=== PATIENT | male | born 1990 | race Caucasian/White ===

== ENCOUNTER 2016-11-24 08:07 | Emergency (ER) | payer BC, OTHER ==
[~2016-11-24] VITALS: Ht 172.7 cm; Wt 98.4 kg
--- OUTSIDE RECORDS SUMMARY | 2016-11-24 08:14 | XMS REPORT ---
Author Author CHARITY GREEN [facility] eClinicalWorks Address Unknown Phone Unavailable Care Team Providers Care Arts Administrator Or Manager Name Role Phone CHARITY GREEN CP Unavailable Allergies No Known Allergies Problems Problem Type Condition Code Onset Dates Condition Status Problem Dyshydrosis L30.1 Active Problem Prickly heat L74.0 Active Medications No Known Medications Results No Known Results Summary Purpose eClinicalWorks Submission
[2016-11-24] MEDS ORDERED: fentaNYL INJECTION 100 MCG/2 ML AMP IVP STA (08:30)
[2016-11-24] MEDS ORDERED: NS IV 1000 ML 1,000 ML IV ONE (08:30)
[2016-11-24 08:36] LABS: BASOPHILS % (AUTO) 0 % (0-10); EOSINOPHILS # (AUTO) 0.2 10^3/uL (0.0-0.3); EOSINOPHILS % (AUTO) 3 % (0-10); LYMPHOCYTES # (AUTO) 3.1 X 10^3 (1.0-4.0); LYMPHOCYTES % (AUTO) 38 % (12-44); MEAN CORPUSCULAR HEMOGLOBIN 30 PG (25-34); MEAN CORPUSCULAR HGB CONC 35 G/DL (32-36); MEAN CORPUSCULAR VOLUME 87 FL (80-99); MEAN PLATELET VOLUME 11.2 FL (7.4-10.4); MONOCYTES % (AUTO) 12 % (0-12); NEUTROPHILS % (AUTO) 48 % (42-75); PLATELET COUNT 215 10^3/uL (130-400); RED CELL DISTRIBUTION WIDTH 13.2 % (10.0-14.5); WHITE BLOOD COUNT 8.4 10^3/uL (4.3-11.0)
[2016-11-24] MEDS ORDERED: IBUP-1773 PO (08:39)
[2016-11-24] MEDS ORDERED: [UNRECOGNIZED DRUG - OTHER] (08:39)
[2016-11-24] MEDS ORDERED: METO10TA3 PO (08:39)
[2016-11-24] MEDS ORDERED: DICY20TA10 PO (08:39)
[2016-11-24] MEDS ORDERED: HYDR-700 PO (08:39)
[2016-11-24] MEDS ORDERED: ASPI-809 PO (08:40)
[2016-11-24] MEDS ORDERED: HYDR-3812 PO (08:40)
[2016-11-24 08:58] LABS: ALANINE AMINOTRANSFERASE 37 U/L (0-55); ALBUMIN 4.8 G/DL (3.2-4.5); AMYLASE 54 U/L (25-125); ANION GAP 11 MMOL/L (5-14); ASPARTATE AMINO TRANSFERASE 20 U/L (5-34); BILIRUBIN,TOTAL 0.4 MG/DL (0.1-1.0); BLOOD UREA NITROGEN 11 MG/DL (7-18); BUN/CREATININE RATIO 10; CALCIUM 9.1 MG/DL (8.5-10.1); CARBON DIOXIDE 22 MMOL/L (21-32); CHLORIDE 109 MMOL/L (98-107); CREATININE SERUM 1.13 MG/DL (0.60-1.30); GFR ESTIMATED > 60; GLUCOSE 97 MG/DL (70-105); LIPASE 14 U/L (8-78); POTASSIUM 3.7 MMOL/L (3.6-5.0); SODIUM 142 MMOL/L (135-145); TOTAL PROTEIN 7.6 G/DL (6.4-8.2)
--- NOTE | 2016-11-24 08:59 | ED Abdominal Pain ---
General Chief Complaint: Abdominal/GI Problems Stated Complaint: ABD PAIN Nursing Triage Note: PT STATES ISABELA HAS DONE SOME TESTS AND HIS GALBLADDER NEEDS TO COME OUT, CC TODAY OF RT ABD PAIN THAT STARTED ABOUT 0500 THIS A.M. Sepsis Screen: No Definite Risk Source of Information: Patient Exam Limitations: No Limitations History of Present Illness Time Seen By Provider: 08:22 Initial Comments Here with complaint of right upper quadrant abdominal pain that started at 5 a.m. this morning. It is associated with nausea but no vomiting. Does have history of gallbladder problems and was told that he needed to get his gallbladder out. He states that he was waiting for insurance which has now. He tried a hydrocodone and ibuprofen 600 mg by mouth this morning and that did not help the pain. Last ate about 1230 a.m. He did drink some fluid when taking his meds earlier. Timing/Duration: 4-6 Hours Severity/Quality: Moderate, Severe Location: RUQ Radiation: No Radiation Activities at Onset: None Modifying Factors: Worsens With Eating, Worsens With Movement Associated Symptoms: No Back Pain, No Chest Pain, No Fever/Chills, Nausea/ Vomiting Allergies and Home Medications Allergies Coded Allergies: Sulfa (Sulfonamide Antibiotics) (Verified Allergy, Intermediate, 11/24/16) Home Medications (Reported) Aspirin/Acetaminophen/Caffeine 1 Each Tablet 1 EACH PO PRN (Reported) Dicyclomine HCl 20 Mg Tablet 20 MG PO DAILY (Reported) Hydrocodone/Acetaminophen 1 Each Tablet 1 EACH PO Q4H PRN PRN PAIN (Reported) Hydroxyzine HCl 25 Mg Tablet 25 MG PO DAILY (Reported) Ibuprofen 600 Mg Tablet 600 MG PO Q6H (Reported) Metoclopramide HCl 10 Mg Tablet 10 MG PO BID (Reported) Review of Systems Constitutional: see HPINo chills, No fever EENTM: No Symptoms Reported Respiratory: No Symptoms Reported Cardiovascular: No Symptoms Reported Gastrointestinal: See HPI Abdominal PainDenies Diarrhea, NauseaDenies Vomiting Genitourinary: No Symptoms Reported Musculoskeletal: no symptoms reported Skin: no symptoms reported All Other Systems Reviewed Negative Unless Noted: Yes Past Enyfqbc-Ekxmbz-Cgyjpn Hx Patient Social History Alcohol Use: Denies Use Recreational Drug Use: No Smoking Status: Never a Smoker Recent Foreign Travel: No Contact w/Someone Who Travel: No Recent Infectious Disease Expo: No Recent Hopitalizations: No Physical Abuse Screen: No Sexual Abuse: No Seasonal Allergies Seasonal Allergies: Yes Surgeries HX Surgeries: Yes (WEBBED HANDS AT -SURGERY, HYDROCELE HERNIA SURGERY) Surgeries: Abdominal, Adenoidectomy, Tonsillectomy Respiratory Hx Respiratory Disorders: Yes Respiratory Disorders: Asthma Cardiovascular Hx Cardiac Disorders: Yes (AORTIC STENOSIS, MITRAL VALVE PROLAPSE) Cardiac Disorders: Valvular Heart Disease Neurological Hx Neurological Disorders: No Genitourinary Hx Genitourinary Disorders: No Gastrointestinal Hx Gastrointestinal Disorders: No Musculoskeletal Hx Musculoskeletal Disorders: No Endocrine Hx Endocrine Disorders: No Cancer Hx Cancer: No Psychosocial Hx Psychiatric Problems: No Integumentary HX Skin/Integumentary Disorder: No Skin/Integumentary Disorders: Psoriasis Blood Transfusions Hx Blood Disorders: No Reviewed Nursing Assessment Reviewed/Agree w Nursing PMH: Yes Family Medical History Significant Family History: No Pertinent Family Hx Physical Exam Vital Signs VS - Last 72 Hours, by Label 11/24/16 08:26 Temp 97.8 Pulse 73 Resp 22 B/P 135/81 Pulse Ox 98 O2 Delivery Room Air Capillary Refill : Less Than 3 Seconds General Appearance: WD/WN no apparent distress HEENT: PERRL/EOMI pharynx normal Neck: full range of motion supple Respiratory: lungs clear normal breath sounds Cardiovascular: regular rate, rhythm no murmur Gastrointestinal: soft tenderness (right upper quadrant) Extremities: non-tender normal inspection Back: normal inspection no CVA tenderness no vertebral tenderness Neurologic/Psychiatric: alert oriented x 3 Skin: normal color warm/dry Progress/Results/Core Measures Results/Orders Lab Results Laboratory Tests Test 11/24/16 08:25 Range/Units Alanine Aminotransferase (ALT/SGPT) 37 0-55 U/L Albumin 4.8 H 3.2-4.5 G/DL Alkaline Phosphatase 82 40-136 U/L Amylase Level 54 25-125 U/L Anion Gap 11 5-14 MMOL/L Aspartate Amino Transf (AST/SGOT) 20 5-34 U/L BUN/Creatinine Ratio 10 Basophils # (Auto) 0.0 0.0-0.1 10^3/uL Basophils (%) (Auto) 0 0-10 % Blood Urea Nitrogen 11 7-18 MG/DL Calcium Level 9.1 8.5-10.1 MG/DL Carbon Dioxide Level 22 21-32 MMOL/L Chloride Level 109 H 98-107 MMOL/L Creatinine 1.13 0.60-1.30 MG/DL Eosinophils # (Auto) 0.2 0.0-0.3 10^3/uL Eosinophils (%) (Auto) 3 0-10 % Estimat Glomerular Filtration Rate > 60 Glucose Level 97 70-105 MG/DL Hematocrit 45 40-54 % Hemoglobin 15.8 13.3-17.7 G/DL Lipase 14 8-78 U/L Lymphocytes # (Auto) 3.1 1.0-4.0 X 10^3 Lymphocytes (%) (Auto) 38 12-44 % Mean Corpuscular Hemoglobin 30 25-34 PG Mean Corpuscular Hemoglobin Concent 35 32-36 G/DL Mean Corpuscular Volume 87 80-99 FL Mean Platelet Volume 11.2 H 7.4-10.4 FL Monocytes # (Auto) 1.0 0.0-1.0 X 10^3 Monocytes (%) (Auto) 12 0-12 % Neutrophils # (Auto) 4.0 1.8-7.8 X 10^3 Neutrophils (%) (Auto) 48 42-75 % Platelet Count 215 130-400 10^3/uL Potassium Level 3.7 3.6-5.0 MMOL/L Red Blood Count 5.20 4.35-5.85 10^6/uL Red Cell Distribution Width 13.2 10.0-14.5 % Sodium Level 142 135-145 MMOL/L Total Bilirubin 0.4 0.1-1.0 MG/DL Total Protein 7.6 6.4-8.2 G/DL White Blood Count 8.4 4.3-11.0 10^3/uL My Orders Orders-GERARD SHI MD Amylase (11/24/16 08:30) Cbc With Automated Diff (11/24/16 08:30) Comprehensive Metabolic Panel (11/24/16 08:30) Lipase (11/24/16 08:30) Saline Lock/Iv-Start (11/24/16 08:30) Ns Iv 1000 Ml (Sodium Chloride 0.9%) (11/24/16 08:30) Fentanyl Injection (Sublimaze Injection (11/24/16 08:30) Us Gallbladder [id number] (11/24/16 08:30) Medications Given in ED Current Medications Medications Dose Ordered Sig/Tabatha Route Start Time Stop Time Status Last Admin Dose Admin Sodium Chloride 1,000 ml @ 0 mls/hr Q0M ONCE IV 1/3/17 08:30 11/24/16 08:32 DC 11/24/16 08:48 1,000 MLS/HR Vital Signs/I&O Vital Sign - Last 12Hours 11/24/16 08:26 Temp 97.8 Pulse 73 Resp 22 B/P 135/81 Pulse Ox 98 O2 Delivery Room Air Blood Pressure Mean: 99 Progress Note : Progress Note Seen and evaluated. IV, labs, normal saline 1 L bolus and ultrasound right upper quadrant ordered. Fentanyl 50 g IV ordered. Patient refuses fentanyl due to an with history of problems. Monitor patient. 1050: Pain improved. I did discuss the case with Dr. Garnica at 1040. He would like to see the patient in the office tomorrow and will set him up for further evaluation including surgery as indicated. This was discussed with the patient who agrees. Discharged home with return precautions. Patient verbalize understanding instructions and agreement with plan. Diagnostic Imaging Diagonstic Imaging: Ultrasound Plain Films/CT/US/NM/MRI: abdomen Comments VIA [facility]. [place], [place] NAME: BEBETO LAWLER [facility] REC#: [id number] PT STATUS: REG ER : 1990 PHYSICIAN: GERARD SHI MD ADMIT DATE: 11/24/16/ER Draft Date of Exam:11/24/16 US GALLBLADDER [id number] PROCEDURE: US Gallbladder. TECHNIQUE: Multiple real-time grayscale images were obtained over the right upper quadrant in various projections. INDICATION: Right upper quadrant pain. FINDINGS: The pancreas is obscured. The liver is fairly homogeneous with no focal lesion. There is hepatopetal flow in the portal vein. The gallbladder demonstrates no stones or wall thickening. There is, however, gallbladder sludge. The CBD is obscured. The right kidney is 10.8 cm with no focal lesion. There is no fluid collection in the upper right abdomen. Sonographic Herrera sign is reportedly negative. IMPRESSION: Gallbladder sludge. No stones or evidence of cholecystitis. Dictated on workstation # [id number] Dict: 11/24/16 0930 Trans: 11/24/16 0943 SUSY [id number] Interpreted by: POLA DANG MD Electronically signed by: Departure Impression Impression: Primary Impression: Right upper quadrant abdominal pain Additional Impression: Gallbladder sludge Disposition: 01 HOME, SELF-CARE Condition: Improved Departure-Patient Inst. Decision time for Depature: 10:50 Referrals: CRISTOFER GARNICA DAVID F MD (PCP/Family) Primary Care Physician Patient Instructions: POSS GALLSTONE-W/BILIARY COLIC Add. Discharge Instructions: All discharge instructions reviewed with patient and/or family. Voiced understanding. Clear liquid diet for 24 hours and then advance as tolerated. Call Dr. Garnica' s office today for appointment time for tomorrow per his instructions. Return for worse pain, fever, vomiting, weakness, breathing problems or other concerns as needed. Take medications as previously prescribed. You may take Pepcid for the generic famotidine 20 mg twice daily for the next several days and then as needed. Work/School Note: Work Release Form Date Seen in the Emergency Department: Nov 24, 2016 Return to Work: Nov 25, 2016 Restrictions: No Restrictions GERARD SHI MD Nov 24, 2016 08:59
--- NOTE | 2016-11-24 09:43 | Diagnostic Imaging Report ---
PROCEDURE: US Gallbladder. TECHNIQUE: Multiple real-time grayscale images were obtained over the right upper quadrant in various projections. INDICATION: Right upper quadrant pain. FINDINGS: The pancreas is obscured. The liver is fairly homogeneous with no focal lesion. There is hepatopetal flow in the portal vein. The gallbladder demonstrates no stones or wall thickening. There is, however, gallbladder sludge. The CBD is obscured. The right kidney is 10.8 cm with no focal lesion. There is no fluid collection in the upper right abdomen. Sonographic Herrera sign is reportedly negative. IMPRESSION: Gallbladder sludge. No stones or evidence of cholecystitis. Dictated by: Dictated on workstation # [id number]
[2016-11-24 11:04] VITALS: BP 116/70
== END 2016-11-24 11:04 | disposition home or self-care (01) ==
LOC: ER 08:10
DX: K82.8 Other specified diseases of gallbladder (principal); I34.1 Nonrheumatic mitral (valve) prolapse; Z79.82 Long term (current) use of aspirin; Z79.899 Other long term (current) drug therapy
CPT/HCPCS: 36415; 76705; 80053; 82150; 83690; 85025; 96361; 96374

== ENCOUNTER → 2016-12-01 | Outpatient (CLI) | payer BC ==
[~2016-12-01] MED LIST: ASPI-809 PO; CATHETER FLUSH 10 ML SYR IV PRN; DICY20TA10 PO; DOCU-143 PO; GALLBLADDER FORMULA PO; HYDR-3812 PO; HYDR-700 PO; IBUP-1773 PO; L.AC1CAP6 PO; MAGN200T PO; METO-310 PO; METO10TA3 PO; MILK500C PO; OMG1KC PO; ONDA4TAB8 PO; OX BILE PO; TURM500C7 PO; [UNRECOGNIZED DRUG - OTHER]; [UNRECOGNIZED DRUG - OTHER] PO; [UNRECOGNIZED DRUG - OTHER] PO; morphine INJ 10 MG/ML 1ML (SYR OR VIAL) ONE; morphine INJ 4 MG/ML 1 ML (VIAL/SYRINGE) IVP PRN
--- NOTE | 2016-12-01 14:20 | Diagnostic Imaging Report ---
EXAMINATION: HIDA without EF measurements INDICATION: Abdominal pain TECHNIQUE: After the intravenous administration of 5.3 mCi of Tc 99m Choletec, imaging over the abdomen was obtained. This was followed by administration of Morphine at 75 minutes. FINDINGS: There is homogeneous uptake in the liver with prompt bile duct and gallbladder filling seen. Bowel activity is seen at 15 minutes. The gallbladder demonstrates mild filling at 115 minutes, at 40 minutes after administration of morphine and appears small, perhaps related to contracted appearance or perhaps is filled with sludge as demonstrated on recent ultrasound. IMPRESSION: There is delayed filling of the gallbladder. This precludes the possibility of acute cholecystitis. The delayed mild filling of the gallbladder could relate, however, to biliary dyskinesia. Correlate clinically. Dictated by: Dictated on workstation # [id number]
== END ==
LOC: CARD 10:51
PROVIDERS: ATTEND Surgery
DX: K82.8 Other specified diseases of gallbladder (principal)
CPT/HCPCS: 78226

== ENCOUNTER 2016-12-29 14:00 | Outpatient (CLI) | payer BC ==
[~2016-12-29] VITALS: Ht 172.7 cm; Wt 98.4 kg
[~2016-12-29 14:00] MED LIST changes: -CATHETER FLUSH 10 ML SYR IV PRN; -DOCU-143 PO; -GALLBLADDER FORMULA PO; -L.AC1CAP6 PO; -MAGN200T PO; -METO-310 PO; -MILK500C PO; -OMG1KC PO; -ONDA4TAB8 PO; -OX BILE PO; -TURM500C7 PO; -[UNRECOGNIZED DRUG - OTHER] PO; -[UNRECOGNIZED DRUG - OTHER] PO; -morphine INJ 10 MG/ML 1ML (SYR OR VIAL) ONE; -morphine INJ 4 MG/ML 1 ML (VIAL/SYRINGE) IVP PRN
== END 2016-12-29 15:54 ==
LOC: PREOP 14:00
PROVIDERS: ATTEND Surgery
DX: Z01.818 Encounter for other preprocedural examination (principal); R93.2 Abnormal findings on diagnostic imaging of liver and biliary tract

== ENCOUNTER 2016-12-31 06:10 | Day surgery (SDC) | payer BC ==
[~2016-12-31] VITALS: Ht 172.7 cm; Wt 98.4 kg
[2016-12-31] MEDS ORDERED: MIDAZOLAM 2 MG/2 ML (VERSED) VIAL IV ONE (06:45)
[2016-12-31] MEDS ORDERED: FAMOTIDINE 20MG/2ML IV (PEPCID) IV ONE (06:45)
[2016-12-31 07:00] VITALS: BP 126/78
[2016-12-31] MEDS ORDERED: ceFAZolin 2 GM/50 ML NS 50 ML IV ONE (07:03)
[2016-12-31] MEDS ORDERED: ONDANSETRON 4 MG/2 ML (SDV) Z0FRAN ONE ×2 (07:12→09:15)
[2016-12-31] MEDS ORDERED: proPOfol 200 MG/20 ML (DIPRIVAN) VIAL IV ONE (07:12)
[2016-12-31] MEDS ORDERED: ROCURONIUM 50 MG/5 ML (ZEMURON) VIAL IV ONE (07:12)
[2016-12-31] MEDS ORDERED: LIDOCAINE PF 2% 10 ML (XYLOCAINE) AMP ONE (07:12)
[2016-12-31] MEDS ORDERED: LIDOCAINE 1% INJ 20 ML (XYLOCAINE) VIAL ONE (07:12)
[2016-12-31] MEDS ORDERED: BUPIVACAINE 0.5% 30 ML (SENSORCAINE) VIAL ONE (07:12)
[2016-12-31] MEDS ORDERED: fentaNYL INJECTION 250 MCG/5 ML AMP ONE (07:13)
[2016-12-31] MEDS ORDERED: DEXAMETHASONE PF 10 MG/ML (DECADRON) VIAL ONE (07:13)
[2016-12-31] MEDS ORDERED: SEVOFLURANE (ULTANE) 15 ML INHAL SOLN ONE ×5 (07:13→09:04)
[2016-12-31] MEDS: LACTATED RINGERS 1,000 ML IV PRN ×2 (07:16→08:20)
--- NOTE | 2016-12-31 07:43 | Progress Note-Pre Operative ---
Pre-Operative Progress Note H&P Reviewed The H&P was reviewed, patient examined and no changes noted. Date H&P Reviewed: Dec 31, 2016 Time H&P Reviewed: 07:42 Pre-Operative Diagnosis: biliary dyskinesia, gallbladder sludge CRISTOFER GARNICA DO Dec 31, 2016 07:43
[2016-12-31] MEDS ORDERED: ceFAZolin 2 GM/NS 50 ML IV ONE (07:45)
[2016-12-31] MEDS ORDERED: [UNRECOGNIZED DRUG - OTHER] PO (08:26)
[2016-12-31] MEDS ORDERED: OMG1KC PO (08:26)
[2016-12-31] MEDS ORDERED: ONDA4TAB8 PO (08:26)
[2016-12-31] MEDS ORDERED: L.AC1CAP6 PO (08:26)
[2016-12-31] MEDS ORDERED: METO-310 PO (08:26)
[2016-12-31] MEDS ORDERED: OX BILE PO (08:26)
[2016-12-31] MEDS ORDERED: MAGN200T PO (08:26)
[2016-12-31] MEDS ORDERED: GALLBLADDER FORMULA PO (08:26)
[2016-12-31] MEDS ORDERED: TURM500C7 PO (08:30)
[2016-12-31] MEDS ORDERED: MILK500C PO (08:30)
[2016-12-31] MEDS ORDERED: [UNRECOGNIZED DRUG - OTHER] PO (08:30)
[2016-12-31] MEDS ORDERED: DICY20TA10 PO (08:30)
--- NOTE | 2016-12-31 08:55 | Progress Note-Post Operative ---
Post-Operative Progess Note Archeologist Classical Dr. Vences Pre-Operative Diagnosis biliary dyskinesia, gallbladder sludge Post-Operative Diagnosis same Post-Op Procedure Note Date of Procedure: Dec 31, 2016 Name of Procedure: lap hussein c ioc Procedure Note/Findings see note Anesthesia Type general Estimated blood loss (mL): minimal Specimen(s) collected gallbladder CRISTOFER GARNICA DO Dec 31, 2016 8:55 am
[2016-12-31] MEDS ORDERED: DOCU-143 PO (08:56)
[2016-12-31] MEDS ORDERED: HYDR-3812 PO (08:56)
--- NOTE | 2016-12-31 08:57 | Discharge Inst-Simple/Standard ---
Discharge Inst-Standard Discharge Medications New, Converted or Re-Newed RX: RX on Chart Patient Instructions/Follow Up Plan of Care/Instructions/FU: 2 weeks arnoldo Activity as Tolerated: No Discharge Diet: Regular Diet Other Inst to Patient Follow up Appt: Make appointment for 2 weeks. Instructions: No lifting greater than 10 pounds. No strenuous activity. May shower in 24 hours, no tub bath or soaking. Use incentive spirometer at home as directed. No Smoking Skin/Wound Care: May remove bandages in 24 hours. You need to leave the white strips over incision on they will fall off on their own. Symptoms to Report: Appetite Changes, Extremity Discoloration, Numbness/Tingling, Swelling Increased , Bleeding Excessive, Eyesight Changes, Pain Increased, Urine Color Change, Constipation(Persistent), Fever over 101 degree F, Pain/Pressure in chest, Urinating Difficulty, Cough Up/Vomit Blood, Heart Beat Irreg/Pounding, Pain/ Pressure in jaw, Vaginal Bleeding Increase, Cramps in feet or legs, Lightheadedness, Pain/Pressure in shoulder, Diarrhea(Persistent), Memory Changes Suddenly, Questions/Concerns, Weight gain consecutive days, Dizziness/ Fainting, Nausea/Vomiting, Shortness of Breath, Weight gain over 2 pounds. If eyes or skin turn yellow notify physician. If questions or concerns contact your physician Or seek help at emergency department. CRISTOFER GARNICA DO Dec 31, 2016 8:57 am
[2016-12-31] MEDS ORDERED: HYDROcodone/APAP 5 MG/325 MG (LORTAB) TAB PO PRN (09:00)
[2016-12-31] MEDS ORDERED: LACTATED RINGERS 1,000 ML IV ONE (09:04)
[2016-12-31] MEDS ORDERED: fentaNYL INJECTION 100 MCG/2 ML AMP ONE (09:15)
[2016-12-31] MEDS ORDERED: fentaNYL INJECTION 100 MCG/2 ML AMP IVP PRN (09:30)
[2016-12-31] MEDS ORDERED: MEPERIDINE (DEMEROL) INJ 50 MG/ML IVP PRN (09:30)
[2016-12-31] MEDS ORDERED: ONDANSETRON 4 MG/2 ML (SDV) Z0FRAN IVP PRN (09:30)
[2016-12-31 10:10] VITALS: BP 105/80
[2016-12-31 10:40] VITALS: BP 127/79
[2016-12-31 11:10] VITALS: BP 120/87
--- NOTE | 2016-12-31 18:01 | Diagnostic Imaging Report ---
EXAMINATION: Intraoperative cholangiogram. Cholecystectomy performed by Dr. Cline with intraoperative cholangiogram. 3 cc of Omnipaque 300 and 8 seconds of fluoroscopy time were utilized. INDICATION: Abdominal pain. FINDINGS: The CBD is normal in caliber with no filling defects to suggest stones or a mass. There is prompt emptying of the CBD into the second portion of the duodenum. Partial opacification of the intrahepatic bile ducts is seen with no obvious abnormality. IMPRESSION: Unremarkable exam. Dictated by: Dictated on workstation # [id number]
--- NOTE | 2017-01-01 10:48 | OPERATIVE REPORT ---
PROCEDURE PHYSICIAN: CRISTOFER GARNICA DATE OF PROCEDURE: 12/31/2016 PREOPERATIVE DIAGNOSIS: Biliary dyskinesia and gallbladder sludge. POSTOPERATIVE DIAGNOSIS: Biliary dyskinesia and gallbladder sludge. PROCEDURE: Laparoscopic cholecystectomy with intraoperative cholangiogram. SURGEON: Son. [employer]: Dr. Vences, assisting in retraction, dissection, and closure. ANESTHESIA: General. ESTIMATED BLOOD LOSS: Minimal. COMPLICATIONS: None. INDICATIONS: The patient is a 26-year-old male who has been having right upper quadrant pain. He had a gallbladder ultrasound demonstrating gallbladder sludge. He had a HIDA scan demonstrating findings consistent with possible biliary dyskinesia or chronic cholecystitis. The patient understands the risks and benefits of the procedure and wishes to proceed with procedure. Consent was signed on the chart. PROCEDURE: The patient was taken operating suite. He was prepped and draped in the sterile fashion. A surgical pause was performed. A 12 mm incision was made just superior to the umbilicus and dissected down to the fascia, where the fascia was scored. A David was used to grasp the fascia, elevate it and the abdomen was then entered. An 0-Vicryl suture was placed in a [id number] fashion at the fascial level. A 5 mm trocar was then placed and secured and pneumoperitoneum was achieved. Under direct visualization of the laparoscope, a 5 mm trocar was placed in the subxiphoid region and two 5 mm trocar were placed in the right upper quadrant. The gallbladder had multiple adhesions to it of omentum. This was then bluntly taken down along with some cautery dissection. The gallbladder was then grasped and elevated and the cystic duct and cystic artery were then dissected out. Clips were placed on the distal portion of the cystic duct and clips were placed on proximal and distal portion of the cystic artery. The cystic artery was then partially transected. An Arrow catheter was inserted into the duct and cholangiogram was then performed. There was no filling defects. Contrast made its way into the duodenum without any difficulty. The catheter was then removed. Clips were placed on proximal portion of the duct this was then completely transected and the cystic artery was then transected. Hook cautery was used to dissect the gallbladder from the gallbladder fossa achieving hemostasis. Once removed, it was placed in an Endobag and removed through the 12 mm trocar site. The abdomen was then irrigated and suctioned. Hemostasis had been achieved. The 12 mm fascial defect was then closed using 0 Vicryl in a [id number] fashion already. The abdomen was then desufflated. Trocars were removed. A total of 20 mL of 0.5% Marcaine and 1% lidocaine 50:50 ratio was used to anesthetize all the trocar sites. The skin was then closed using 4-0 Vicryl in a subcuticular fashion. The area was then washed and dried and Mastisol and Steri-Strips were applied. Sterile bandages were applied. The patient tolerated procedure well without any complications and was taken to the recovery room in stable condition. Job ID: [id number] Dictated Date: 12/31/2016 09:01:39 Receiving Coordinator Date: 01/01/2017 10:32:51 / sonali
== END 2016-12-31 13:28 | disposition home or self-care (01) ==
LOC: SDC 06:10
PROVIDERS: ATTEND Surgery
DX: K81.1 Chronic cholecystitis (principal)
CPT/HCPCS: 87081; 88304

== ENCOUNTER 2017-03-11 15:26 | Emergency (ER) | payer BC ==
[~2017-03-11] VITALS: Ht 172.7 cm; Wt 97.5 kg
[~2017-03-11 15:26] MED LIST changes: +DOCU-143 PO; +GALLBLADDER FORMULA PO; +L.AC1CAP6 PO; +MAGN200T PO; +METO-310 PO; +MILK500C PO; +OMG1KC PO; +ONDA4TAB8 PO; +OX BILE PO; +TURM500C7 PO; +[UNRECOGNIZED DRUG - OTHER] PO; +[UNRECOGNIZED DRUG - OTHER] PO
--- NOTE | 2017-03-11 16:18 | ED Back Pain ---
General Chief Complaint: Back Problems Stated Complaint: BACK PAIN, DIZZY Nursing Triage Note: c/o back pain starting 2 days ago. patient reports going to chiropracter today and yesterday, patient reports back pain hasn't improved and today chiropractor adjusted his neck. patient reports he is dizzy Nursing Sepsis Screen: No Definite Risk Source of Information: Patient Exam Limitations: No Limitations History of Present Illness Time Seen by Provider: 16:16 Initial Comments ambulatory to ER with reports of dizziness. This began today at around noon about 4 hours ago. This morning at 9 a.m. he saw the chiropractor and had cervical manipulation done. This was done because he been having a few days of low back pain that radiates down the left leg after lifting. No fevers or chills. Otherwise feels well. He is dizzy even at rest. He denies neck pain. Timing/Duration: 4-6 Hours Severity: Moderate Allergies and Home Medications Allergies Coded Allergies: Sulfa (Sulfonamide Antibiotics) (Verified Allergy, Intermediate, 12/29/16) Home Medications Hydroxyzine HCl 25 Mg Tablet, 25 MG PO DAILY, (Reported) Constitutional: see HPI EENTM: see HPI Respiratory: no symptoms reported Cardiovascular: no symptoms reported Genitourinary: no symptoms reported Musculoskeletal: no symptoms reported Skin: no symptoms reported Psychiatric/Neurological: See HPI, Other (dizziness) Past Ilpbcxs-Skjdul-Gpkxxd Hx Patient Social History Alcohol Use: Denies Use Recreational Drug Use: No Smoking Status: Never a Smoker Recent Foreign Travel: No Contact w/Someone Who Travel: No Recent Infectious Disease Expo: No Recent Hopitalizations: No Immunizations Up To Date Tetanus Booster (TDap): Unknown Seasonal Allergies Seasonal Allergies: Yes Surgeries HX Surgeries: Yes (WEBBED HANDS AT -SURGERY, HYDROCELE HERNIA SURGERY) Surgeries: Abdominal, Adenoidectomy, Tonsillectomy Respiratory Hx Respiratory Disorders: Yes Respiratory Disorders: Asthma Cardiovascular Hx Cardiac Disorders: Yes (AORTIC STENOSIS, MITRAL VALVE PROLAPSE) Cardiac Disorders: Hypertension, Valvular Heart Disease Neurological Hx Neurological Disorders: No Reproductive System Hx Reproductive Disorders: No Sexually Transmitted Disease: No HIV/AIDS: No Genitourinary Hx Genitourinary Disorders: No Gastrointestinal Hx Gastrointestinal Disorders: Yes Gastrointestinal Disorders: Gall Bladder Disease Musculoskeletal Hx Musculoskeletal Disorders: No Endocrine Hx Endocrine Disorders: No HEENT HX ENT Disorders: No Loss of Vision: Denies Hearing Impairment: Denies Cancer Hx Cancer: No Psychosocial Hx Psychiatric Problems: No Integumentary HX Skin/Integumentary Disorder: Yes Skin/Integumentary Disorders: Psoriasis Blood Transfusions Hx Blood Disorders: No Adverse Reaction to a Blood Tr: No (N/A) Family Medical History Significant Family History: No Pertinent Family Hx Physical Exam Vital Signs Vital Sign - Last 12Hours 03/11/17 15:32 Temp 97.7 Pulse 72 Resp 18 B/P (MAP) 125/91 Pulse Ox 98 Capillary Refill : Less Than 3 Seconds General Appearance: No Apparent Distress, WD/WN, Other (alert and oriented, GCS 15) HEENT: PERRL/EOMI, TMs Normal, Other (no nystagmus noted) Neck: Full Range of Motion, Normal Inspection Cardiovascular: Regular Rate, Rhythm, Normal Peripheral Pulses Respiratory: Normal Breath Sounds, No Accessory Muscle Use, No Respiratory Distress Gastrointestinal: Normal Bowel Sounds, Non Tender, Soft Extremity: Normal Capillary Refill, Normal Inspection Neurologic/Psychiatric: Alert, Oriented x3, No Motor/Sensory Deficits Skin: Normal Color, Warm/Dry Progress/Results/Core Measures Results/Orders Lab Results Laboratory Tests Test 03/11/17 16:35 Range/Units White Blood Count 5.5 4.3-11.0 10^3/uL Red Blood Count 5.13 4.35-5.85 10^6/uL Hemoglobin 15.5 13.3-17.7 G/DL Hematocrit 45 40-54 % Mean Corpuscular Volume 88 80-99 FL Mean Corpuscular Hemoglobin 30 25-34 PG Mean Corpuscular Hemoglobin Concent 34 32-36 G/DL Red Cell Distribution Width 13.2 10.0-14.5 % Platelet Count 192 130-400 10^3/uL Mean Platelet Volume 11.3 H 7.4-10.4 FL Neutrophils (%) (Auto) 47 42-75 % Lymphocytes (%) (Auto) 39 12-44 % Monocytes (%) (Auto) 12 0-12 % Eosinophils (%) (Auto) 2 0-10 % Basophils (%) (Auto) 0 0-10 % Neutrophils # (Auto) 2.5 1.8-7.8 X 10^3 Lymphocytes # (Auto) 2.1 1.0-4.0 X 10^3 Monocytes # (Auto) 0.7 0.0-1.0 X 10^3 Eosinophils # (Auto) 0.1 0.0-0.3 10^3/uL Basophils # (Auto) 0.0 0.0-0.1 10^3/uL Sodium Level 142 135-145 MMOL/L Potassium Level 4.0 3.6-5.0 MMOL/L Chloride Level 107 98-107 MMOL/L Carbon Dioxide Level 28 21-32 MMOL/L Anion Gap 7 5-14 MMOL/L Blood Urea Nitrogen 6 L 7-18 MG/DL Creatinine 0.96 0.60-1.30 MG/DL Estimat Glomerular Filtration Rate > 60 BUN/Creatinine Ratio 6 Glucose Level 91 70-105 MG/DL Calcium Level 8.9 8.5-10.1 MG/DL Total Bilirubin 0.5 0.1-1.0 MG/DL Aspartate Amino Transf (AST/SGOT) 25 5-34 U/L Alanine Aminotransferase (ALT/SGPT) 42 0-55 U/L Alkaline Phosphatase 76 40-136 U/L Total Protein 6.9 6.4-8.2 G/DL Albumin 4.4 3.2-4.5 G/DL My Orders Orders - CHARO GUTIÉRREZ APRN Cbc With Automated Diff (03/11/17 16:14) Comprehensive Metabolic Panel (03/11/17 16:14) Saline Lock/Iv-Start (03/11/17 16:14) Ct Angio Head/Neck (03/11/17 16:14) Iohexol Injection (Omnipaque 350 Mg/Ml 1 (03/11/17 16:30) Ns (Ivpb) (Sodium Chloride 0.9% Ivpb Bag (03/11/17 16:30) Medications Given in ED Current Medications Medications Dose Ordered Sig/Tabatha Route Start Time Stop Time Status Last Admin Dose Admin Iohexol 100 ml ONCE ONCE IV 03/11/17 16:30 03/11/17 16:31 DC 03/11/17 17:29 85 ML Sodium Chloride 100 ml ONCE ONCE IV 03/11/17 16:30 03/11/17 16:31 DC 03/11/17 17:29 80 ML Vital Signs/I&O Vital Sign - Last 12Hours 03/11/17 15:32 Temp 97.7 Pulse 72 Resp 18 B/P (MAP) 125/91 Pulse Ox 98 Blood Pressure Mean: 102 Diagnostic Imaging Diagonstic Imaging: CT Comments NAME: BEBETO LAWLER [facility] REC#: [id number] PT STATUS: REG ER : 1990 PHYSICIAN: CHARO GUTIÉRREZ APRN ADMIT DATE: 03/11/17/ER Signed Date of Exam:03/11/17 CT ANGIO HEAD/NECK PROCEDURE: CT angiography of the head and CT angiography of the neck with and without contrast. TECHNIQUE: Contiguous noncontrast images were obtained from the skull base through the vertex. After intravenous contrast administration, helical CT angiography of the neck was performed. Source data was reformatted into multiple MIP projections. Delayed post contrast acquisition was also obtained. INDICATION: Went to the chiropractor. Now complains of dizziness and nausea. The ventricles are normal in size, shape and position. There is no acute parenchymal hemorrhage, edema, mass or abnormal parenchymal enhancement. There is no extra-axial mass or abnormal meningeal enhancement. There are normal origins of the brachiocephalic vessels. The carotid and vertebral arteries are widely patent with no obstruction, extravasation or dissection demonstrated. Intracranial view shows no evidence for aneurysm, AVM, neovascularity or major vessel occlusion. IMPRESSION: Normal CT angiography of the head and neck. Dictated by: Dictated on workstation # [id number] Dict: 03/11/171801 Trans: 03/11/171812 [facility] [id number] Interpreted by: ANGELIC SALAS MD Electronically signed by: ANGELIC SALAS MD 03/11/171812 Departure Impression Impression: Primary Impression: Dizziness Disposition: 01 HOME, SELF-CARE Condition: Stable Departure-Patient Inst. Decision time for Depature: 18:16 Referrals: CHARITY GREEN MD (PCP/Family) Primary Care Physician Patient Instructions: Dizziness, Nonvertigo, (DC) Add. Discharge Instructions: 1. Return to ER for any concerns 2. See your regular doctor later this week All discharge instructions reviewed with patient and/or family. Voiced understanding. CHARO GUTIÉRREZ APRN Mar 11, 2017 16:18
[2017-03-11] MEDS ORDERED: NS 100 ML (IVPB) BAG IV ONE (16:30)
[2017-03-11] MEDS ORDERED: IOHEXOL 350 MG/ML 100 ML (OMNIPAQUE 350) VIAL IV ONE (16:30)
[2017-03-11 16:43] LABS: BASOPHILS % (AUTO) 0 % (0-10); EOSINOPHILS # (AUTO) 0.1 10^3/uL (0.0-0.3); EOSINOPHILS % (AUTO) 2 % (0-10); LYMPHOCYTES # (AUTO) 2.1 X 10^3 (1.0-4.0); LYMPHOCYTES % (AUTO) 39 % (12-44); MEAN CORPUSCULAR HEMOGLOBIN 30 PG (25-34); MEAN CORPUSCULAR HGB CONC 34 G/DL (32-36); MEAN CORPUSCULAR VOLUME 88 FL (80-99); MEAN PLATELET VOLUME 11.3 FL (7.4-10.4); MONOCYTES # (AUTO) 0.7 X 10^3 (0.0-1.0); MONOCYTES % (AUTO) 12 % (0-12); NEUTROPHILS # (AUTO) 2.5 X 10^3 (1.8-7.8); NEUTROPHILS % (AUTO) 47 % (42-75); PLATELET COUNT 192 10^3/uL (130-400); RED BLOOD COUNT 5.13 10^6/uL (4.35-5.85); RED CELL DISTRIBUTION WIDTH 13.2 % (10.0-14.5); WHITE BLOOD COUNT 5.5 10^3/uL (4.3-11.0)
[2017-03-11 17:01] LABS: ALANINE AMINOTRANSFERASE 42 U/L (0-55); ALBUMIN 4.4 G/DL (3.2-4.5); ANION GAP 7 MMOL/L (5-14); ASPARTATE AMINO TRANSFERASE 25 U/L (5-34); BILIRUBIN,TOTAL 0.5 MG/DL (0.1-1.0); BLOOD UREA NITROGEN 6 MG/DL (7-18); BUN/CREATININE RATIO 6; CALCIUM 8.9 MG/DL (8.5-10.1); CARBON DIOXIDE 28 MMOL/L (21-32); CHLORIDE 107 MMOL/L (98-107); CREATININE SERUM 0.96 MG/DL (0.60-1.30); GFR ESTIMATED > 60; GLUCOSE 91 MG/DL (70-105); SODIUM 142 MMOL/L (135-145); TOTAL PROTEIN 6.9 G/DL (6.4-8.2)
--- NOTE | 2017-03-11 18:12 | Diagnostic Imaging Report ---
PROCEDURE: CT angiography of the head and CT angiography of the neck with and without contrast. TECHNIQUE: Contiguous noncontrast images were obtained from the skull base through the vertex. After intravenous contrast administration, helical CT angiography of the neck was performed. Source data was reformatted into multiple MIP projections. Delayed post contrast acquisition was also obtained. INDICATION: Went to the chiropractor. Now complains of dizziness and nausea. The ventricles are normal in size, shape and position. There is no acute parenchymal hemorrhage, edema, mass or abnormal parenchymal enhancement. There is no extra-axial mass or abnormal meningeal enhancement. There are normal origins of the brachiocephalic vessels. The carotid and vertebral arteries are widely patent with no obstruction, extravasation or dissection demonstrated. Intracranial view shows no evidence for aneurysm, AVM, neovascularity or major vessel occlusion. IMPRESSION: Normal CT angiography of the head and neck. Dictated by: Dictated on workstation # [id number]
[2017-03-11 18:21] VITALS: BP 121/77
== END 2017-03-11 18:21 | disposition home or self-care (01) ==
LOC: EDUNIT# 15:26 → ER 15:28
DX: R42 Dizziness and giddiness (principal); M54.5 Low back pain; I10 Essential (primary) hypertension; Z79.899 Other long term (current) drug therapy
CPT/HCPCS: 36415; 70496; 70498; 80053; 85025

== ENCOUNTER 2017-10-15 08:57 | Emergency (ER) | payer BC ==
[~2017-10-15] VITALS: Ht 172.7 cm; Wt 95.3 kg
[2017-10-15] MEDS ORDERED: CLIN150C17 (09:50)
--- NOTE | 2017-10-15 10:51 | Diagnostic Imaging Report ---
INDICATION: Cough. EXAM: PA and lateral views of the chest were obtained. FINDINGS: The heart size, mediastinal configuration, and pulmonary vascularity are within normal limits. There is no pleural effusion, pneumothorax, or pneumonia. The osseous structures are unremarkable. IMPRESSION: No acute cardiopulmonary abnormality. Dictated by: Dictated on workstation # [id number]
[2017-10-15] MEDS ORDERED: OSLT75C PO (11:18)
[2017-10-15] MEDS ORDERED: METH4TAB PO (11:18)
--- NOTE | 2017-10-15 11:18 | ED Cough/URI ---
General Chief Complaint: Respiratory Problems Stated Complaint: BREATHING DIFFICULTIES Nursing Triage Note: ARRIVED VIA AMB TO ROOM 10. STATES HE WAS SEEN AT [facility] ON WED AND HAD A ABCESS IN MOUTH LANCED AND WAS GIVEN IV ABX AND A SCRIPT FOR ABX. STATES SINCE THEN HE HAS FELT SOA AND HAVING BODY ACHES. Allergies and Home Medications Allergies Coded Allergies: Sulfa (Sulfonamide Antibiotics) (Verified Allergy, Intermediate, 12/29/16) Home Medications Clindamycin HCl 150 Mg Capsule, (Reported) Methylprednisolone 4 Mg Tab.ds.pk, 4 MG PO UD, #1 Prescribed by: MIAN BUSTILLO on 10/15/17 1118 Oseltamivir Phosphate 75 Mg Cap, 75 MG PO BID, #10 Prescribed by: MIAN BUSTILLO on 10/15/17 1118 Past Sbyungm-Rswink-Yycapf Hx Patient Social History Alcohol Use: Denies Use Recreational Drug Use: No Smoking Status: Never a Smoker Recent Foreign Travel: No Contact w/Someone Who Travel: No Recent Infectious Disease Expo: No Recent Hopitalizations: No Immunizations Up To Date Tetanus Booster (TDap): Unknown Seasonal Allergies Seasonal Allergies: Yes Surgeries History of Surgeries: Yes (WEBBED HANDS AT -SURGERY, HYDROCELE HERNIA SURGERY) Surgeries: Abdominal, Adenoidectomy, Tonsillectomy Respiratory History of Respiratory Disorde: Yes Respiratory Disorders: Asthma Cardiovascular History of Cardiac Disorders: Yes (AORTIC STENOSIS, MITRAL VALVE PROLAPSE) Cardiac Disorders: Hypertension, Valvular Heart Disease Neurological History of Neurological Disord: No Reproductive System Hx Reproductive Disorders: No Sexually Transmitted Disease: No HIV/AIDS: No Genitourinary History of Genitourinary Disor: No Gastrointestinal History of Gastrointestinal Di: Yes Gastrointestinal Disorders: Gall Bladder Disease Musculoskeletal History of Musculoskeletal Dis: No Endocrine History of Endocrine Disorders: No HEENT History of HEENT Disorders: No Loss of Vision: Denies Hearing Impairment: Denies Cancer History of Cancer: No Did You Recieve Any Treatments: No Psychosocial History of Psychiatric Problem: No Integumentary History of Skin or Integumenta: Yes Skin/Integumentary Disorders: Psoriasis Blood Transfusions History of Blood Disorders: No Adverse Reaction to a Blood Tr: No (N/A) Family Medical History Significant Family History: No Pertinent Family Hx Physical Exam Vital Signs Vital Sign - Last 12Hours 10/15/17 09:33 Temp 97.5 Pulse 70 Resp 16 B/P (MAP) 136/100 Pulse Ox 100 Capillary Refill : Less Than 3 Seconds Progress/Results/Core Measures Suspected Sepsis Recent Fever Within 48 Hours: No Infection Criteria Present: Documented Infection New/Unexplained Altered Menta: No Sepsis Screen: No Definite Risk Sepsis Diagnosis: SIRS Temperature:97.5 Pulse: 70 Respiratory Rate: 16 Blood Pressure 136 /100 Mean: 112 Results/Orders Micro Results Microbiology 10/15/17 Influenza Types A,B Antigen ([facility]UPERT) - Final, Complete My Orders Orders - MIAN BUSTILLO DO Chest Pa/Lat (2 View) (10/15/17 10:04) Influenza A And B Antigens (10/15/17 10:04) Vital Signs/I&O Vital Sign - Last 12Hours 10/15/17 09:33 Temp 97.5 Pulse 70 Resp 16 B/P (MAP) 136/100 Pulse Ox 100 Capillary Refill : Less Than 3 Seconds Blood Pressure Mean: 112 Departure Impression Impression: Primary Impression: Influenza-like illness Disposition: HOME, SELF-CARE Condition: Stable Departure-Patient Inst. Referrals: CHARITY GREEN MD (PCP/Family) Primary Care Physician Patient Instructions: Flu, Adult (DC) Add. Discharge Instructions: LOTS OF CLEAR LIQUIDS ALTERNATE TYLENOL AND MOTRIN EVERY 2-3 HOURS NEEDED FOR PAIN OR FEVER ROBITUSSIN DM FOR COUGH FOLLOW UP WITH YOUR DR IN 3-4 DAYS IF NO BETTER All discharge instructions reviewed with patient and/or family. Voiced understanding. Scripts Oseltamivir Phosphate (Tamiflu) 75 Mg Cap 75 MG PO BID, #10 CAP Prov: BARRY BUSTILLOA Jerry WHITT 10/15/17 Methylprednisolone (Medrol) 4 Mg Tab.ds.pk 4 MG PO UD, #1 PKG Prov: BARRY BUSTILLOA Jerry WHITT 10/15/17 Work/School Note: Work Release Form Date Seen in the Emergency Department: Oct 15, 2017 Return to Work: Oct 18, 2017 Restrictions: No Restrictions IWONAMIAN Jerry WHITT Oct 15, 2017 11:18
[2017-10-15 11:37] VITALS: BP 130/79
== END 2017-10-15 11:37 | disposition home or self-care (01) ==
LOC: EDUNIT# 08:57 → ER 08:59
DX: J11.1 Influenza due to unidentified influenza virus with other respiratory manifestations (principal); J45.909 Unspecified asthma, uncomplicated; I10 Essential (primary) hypertension; Z90.89 Acquired absence of other organs; Z87.19 Personal history of other diseases of the digestive system
CPT/HCPCS: 71020; 87804; 99282

== ENCOUNTER → 2017-12-22 | Outpatient (CLI) | payer BC ==
[~2017-12-22] MED LIST changes: +ACHD5005 PO; +CLIN150C17; -HYDR-3812 PO; +METH4TAB PO; +OSLT75C PO
== END ==
LOC: CARD 10:23
PROVIDERS: ATTEND Internal Medicine Cardiovascular Disease
DX: I10 Essential (primary) hypertension (principal); J45.909 Unspecified asthma, uncomplicated; E66.01 Morbid (severe) obesity due to excess calories
CPT/HCPCS: 93306